=== PATIENT | male | born 1940 | race Caucasian/White ===

== ENCOUNTER 2022-02-06 07:00 | Inpatient (IN) ==
[2022-02-06] MEDS ORDERED: DEXTROSE 10% 250 ML BAG IV PRN (11:52)
[2022-02-06] MEDS ORDERED: GLUCAGON 1 MG VIAL IM PRN (11:52)
[2022-02-06] MEDS ORDERED: SODIUM CHLORIDE 0.9% 1,000 ML IV SCH (12:00)
[2022-02-06] MEDS ORDERED: MORPHINE 2 MG/1 ML SYRINGE IV PRN (12:07)
[2022-02-06] MEDS ORDERED: NITROGLYCERIN SL 0.4 MG TABLET SL PRN (12:07)
[2022-02-06] MEDS ORDERED: CLORAZEPATE 3.75 MG TABLET PO PRN (12:07)
[2022-02-06 12:43] LABS: Basophils % 0.6 % (0.0-0.8); Eosinophils # 0.6 10*3/uL (0.0-0.87); Eosinophils % 8.9 % (0.00-10.9); Hematocrit 44.4 VOL% (42.0-52.0); Hemoglobin 13.9 GM/DL (14.0-18.0); Immature Granulocytes % 0.3 %; Immature Granulocytes Absolute 0.02 #; Lymphocytes # 1.5 10*3/uL (1.4-4.0); Lymphocytes % 22.9 % (21.2-54.2); Mean Corpuscular HGB Conc 31.3 GM/DL (32-36); Mean Corpuscular Volume 92.9 FL (87-102); Mean Platelet Volume 9.8 FL (9.6-12.0); Monocytes # 0.8 10*3/uL (0.11-0.8); Monocytes % 12.1 % (1.7-12.7); Neutrophils % 55.2 % (38.7-73.9); Platelet Count 256 T/CUMM (130-400); Red Blood Count 4.78 MC/CUMM (3.8-5.5); Red Cell Distribution Width 13.5 % (9.3-17.3); White Blood Count 6.6 T/CUMM (4-12)
[2022-02-06 13:04] LABS: Albumin 3.2 G/DL (3.4-5.0); Bilirubin,Total 0.4 MG/DL (0.20-1.00); Calcium 8.9 MG/DL (8.5-10.1); Osmolality,Calculated 278.4 MOS/KG (273-304); Potassium 4.2 MMOL/L (3.5-5.1); Total Protein 6.7 G/DL (6.4-8.2)
[2022-02-06 14:48] LABS: Arterial Base Excess iSTAT 3 MMOL/L (-2.5-2.5); Arterial Bicarbonate iSTAT 28.7 MMOL/L (20-26); Arterial O2 Saturation iSTAT 95 % (95-100); Arterial PCO2 iSTAT 47 MM HG (35-48); Arterial PO2 iSTAT 75 MM HG (80-95); Arterial Total CO2 iSTAT 30 MMO/L (23-27); Arterial pH iSTAT 7.392 (7.35-7.45)
[2022-02-06] MEDS ORDERED: DIAZEPAM 5 MG TABLET PO ONE (16:28)
[2022-02-06] MEDS ORDERED: PANTOPRAZOLE 40 MG TABLET PO ONE (16:28)
[2022-02-06] MEDS: CHLORHEXIDINE 4% SOLN 118 ML BOTTLE TOP SCH ×2 (16:50→21:28)
[2022-02-06] MEDS ORDERED: amLODIPine 5 MG TABLET PO SCH (21:00)
[2022-02-06] MEDS: CHLORHEXIDINE 0.12% ORAL RINSE 60 ML BOTTLE SWISH/SPIT SCH (21:30)
[2022-02-07] MEDS: CHLORHEXIDINE 4% SOLN 118 ML BOTTLE TOP SCH (04:06)
[2022-02-07] MEDS ORDERED: PAPAVERINE 60 MG/2 ML VIAL ONE (04:17)
[2022-02-07] MEDS ORDERED: VANCOMYCIN 1,000 MG VIAL ONE (04:17)
[2022-02-07] MEDS ORDERED: VANCOMYCIN 500 MG VIAL ONE (04:17)
[2022-02-07] MEDS ORDERED: CEFUROXIME INJ 1,500 MG in SODIUM CHLORIDE 0.9% 100 ML IV ONE (05:00)
[2022-02-07] MEDS ORDERED: ePHEDrine 50 MG/ML VIAL ONE (05:34)
[2022-02-07] MEDS ORDERED: VECURONIUM 10 MG VIAL IV ONE (05:34)
[2022-02-07] MEDS ORDERED: PHENYLEPHRINE DRIP 20 MG/250 ML PREMIX IV ONE (05:34)
[2022-02-07] MEDS ORDERED: SODIUM CHLORIDE 0.9% 1,000 ML IV ONE (05:34)
[2022-02-07] MEDS ORDERED: LIDOCAINE 2% 5 ML VIAL ONE ×2 (05:34→11:24)
[2022-02-07] MEDS ORDERED: NITROGLYCERIN DRIP 50 MG/250 ML BOTTLE IV ONE (05:34)
[2022-02-07] MEDS ORDERED: LACTATED RINGERS 1,000 ML IV ONE (05:34)
[2022-02-07] MEDS ORDERED: AMINOCAPROIC ACID 5,000 MG/20 ML VIAL ONE (05:34)
[2022-02-07] MEDS ORDERED: MINERAL OIL/PETROLATUM OPH OINT 3.5 GM TUBE ONE (05:34)
[2022-02-07] MEDS ORDERED: SODIUM CHLORIDE 0.9% 250 ML IV ONE (05:34)
[2022-02-07] MEDS ORDERED: SEVOFLURANE 1 UNIT/15 MINUTE INH ONE ×2 (05:34→11:48)
[2022-02-07] MEDS ORDERED: ETOMIDATE 40 MG/20 ML VIAL IV ONE (05:34)
[2022-02-07] MEDS ORDERED: MIDAZOLAM 10 MG/2 ML VIAL ONE ×3 (05:34→05:35)
[2022-02-07] MEDS ORDERED: CALCIUM CHLORIDE 1,000 MG/10 ML VIAL IV ONE ×2 (05:34→11:48)
[2022-02-07] MEDS ORDERED: SUFentanil 250 MCG/5 ML AMP ONE (05:35)
[2022-02-07] MEDS ORDERED: HEPARIN/NACL 0.9% 2 UNITS/ML 1,000 UNIT/500 ML BAG IV ONE (05:45)
[2022-02-07] MEDS ORDERED: PANTOPRAZOLE 40 MG TABLET PO ONE (05:50)
[2022-02-07] MEDS ORDERED: DIAZEPAM 5 MG TABLET PO ONE (05:50)
[2022-02-07 07:38] LABS: ABG Base Excess 1.7 MMOL/L (-2.5-2.5); ABG HCO3 25.9 MMOL/L (20-26); ABG PCO2 45.4 MM HG (35-48); ABG PH 7.386 (7.35-7.45); ABG TCO2 23.8 MMOL/L (23-27); Glucose Heart Surgery 113 MG/DL (74-106); Hematocrit Heart Surgery 39.8 PERCENT (42-52); Ionized Calcium Arterial 1.26 MMOL/L (1.21-1.46); PCO2 Patient Temp Arterial 45.4 MMHG; PH Patient Temp Arterial 7.386; Patient Temperature 37 CELCIUS; Sodium Heart/CVR 141 MMOL/L (135-145)
[2022-02-07] MEDS ORDERED: AMIODARONE 150 MG/3 ML VIAL ONE ×2 (08:41→17:24)
[2022-02-07 08:43] LABS: RBC,Urine 1 /HPF (0-4)
[2022-02-07 08:44] LABS: Bilirubin,Urine Negative (Negative); Blood, Urine Trace mg/dL (Negative); Glucose,Urine (UA) Negative (Negative); Ketones,Urine Negative (Negative); Nitrite,Urine Negative (Negative); Protein,Urine Negative (Negative); Urine Appearance Clear (Clear); Urine Color Yellow (Yellow); Urine Specific Gravity 1.015 (1.001-1.035); Urine Urobilinogen 0.2 eU/dL (<2.0)
[2022-02-07] MEDS ORDERED: POTASSIUM CHLORIDE RIDER 20 MEQ/100 ML PREMIX IV ONE (09:06)
[2022-02-07] MEDS ORDERED: NITROPRUSSIDE 50 MG/2 ML VIAL ONE (09:06)
[2022-02-07] MEDS ORDERED: SODIUM BICARBONATE 50 MEQ/50 ML VIAL IV ONE ×2 (09:06→11:27)
[2022-02-07 09:07] LABS: Hematocrit Heart Surgery 27.6 PERCENT (42-52); Hemoglobin Heart Surgery 8.9 G/DL (14.0-18.0); PCO2 Patient Temp Venous 34.5 MM HG; PH Patient Temp Venous 7.409; PO2 Patient Temp Venous 39.3 MM HG; Potassium Heart/CVR 5.1 MMOL/L (3.5-5.1); VBG Base Excess -2.3 MEQ/L (0-4); VBG HCO3 22.3 MEQ/L (24-28); VBG Oxygen Saturation 83.7 %; VBG PCO2 39.8 MMHG (41-51); VBG PH 7.366; VBG PO2 48.3 MMHG (17-40); VBG Total CO2 21.2 MMOL/L
[2022-02-07] MEDS ORDERED: ALBUMIN 5% 12.5 GM/250 ML VIAL IV ONE ×2 (09:07→11:23)
[2022-02-07] MEDS ORDERED: PHENYLEPHRINE DRIP 40 MG/250 ML PREMIX IV ONE (09:07)
[2022-02-07] MEDS ORDERED: CALCIUM CHLORIDE 1,000 MG/10 ML SYRINGE IV ONE (09:07)
[2022-02-07] MEDS ORDERED: FAMOTIDINE 20 MG/2 ML VIAL IV ONE (09:21)
[2022-02-07] MEDS ORDERED: diphenhydrAMINE 50 MG/1 ML VIAL ONE (09:21)
[2022-02-07 09:39] LABS: Hematocrit Heart Surgery 29.1 PERCENT (42-52); Hemoglobin Heart Surgery 9.4 G/DL (14.0-18.0); PCO2 Patient Temp Venous 32.8 MM HG; PH Patient Temp Venous 7.482; PO2 Patient Temp Venous 37.8 MM HG; Potassium Heart/CVR 4.4 MMOL/L (3.5-5.1); VBG Base Excess 1.5 MEQ/L (0-4); VBG HCO3 25.5 MEQ/L (24-28); VBG Oxygen Saturation 81.8 %; VBG PCO2 37.9 MMHG (41-51); VBG PH 7.438; VBG PO2 46.5 MMHG (17-40); VBG Total CO2 23.5 MMOL/L
[2022-02-07] MEDS ORDERED: ESMOLOL 100 MG/10 ML VIAL IV ONE (09:57)
[2022-02-07 10:05] LABS: Hematocrit Heart Surgery 27.9 PERCENT (42-52); PCO2 Patient Temp Venous 31.2 MM HG; PH Patient Temp Venous 7.478; PO2 Patient Temp Venous 32.2 MM HG; Potassium Heart/CVR 4.4 MMOL/L (3.5-5.1); VBG Base Excess 0.1 MEQ/L (0-4); VBG HCO3 24.2 MEQ/L (24-28); VBG Oxygen Saturation 75.7 %; VBG PH 7.433; VBG PO2 39.7 MMHG (17-40); VBG Total CO2 22.3 MMOL/L
[2022-02-07] MEDS: CHLORHEXIDINE 0.12% ORAL RINSE 60 ML BOTTLE SWISH/SPIT SCH ×2 (10:26→20:52)
[2022-02-07] MEDS ORDERED: THROMBIN TOPICAL (RECOMBINANT) 5,000 UNIT VIAL TOP ONE (10:36)
[2022-02-07 11:17] LABS: ABG Base Excess -0.1 MMOL/L (-2.5-2.5); ABG HCO3 24.4 MMOL/L (20-26); ABG Oxygen Saturation 99.6 % (95-100); ABG PCO2 38.2 MM HG (35-48); ABG PH 7.413 (7.35-7.45); ABG TCO2 22.4 MMOL/L (23-27); Glucose Heart Surgery 221 MG/DL (74-106); Hematocrit Heart Surgery 27.8 PERCENT (42-52); Ionized Calcium Arterial 1.26 MMOL/L (1.21-1.46); PCO2 Patient Temp Arterial 38.2 MMHG; PH Patient Temp Arterial 7.413; Patient Temperature 37 CELCIUS; Potassium Heart/CVR 3.7 MMOL/L (3.5-5.1); Sodium Heart/CVR 137 MMOL/L (135-145)
[2022-02-07] MEDS ORDERED: ALBUMIN 25% 25 GM/100 ML VIAL IV ONE (11:24)
[2022-02-07] MEDS ORDERED: MAGNESIUM SULFATE 5 GM/10 ML VIAL IV ONE (11:25)
[2022-02-07] MEDS ORDERED: PROTAMINE SULFATE 250 MG/25 ML VIAL IV ONE (11:25)
[2022-02-07] MEDS ORDERED: DEXTROSE 5% KCL 20 MEQ 20 MEQ/1,000 ML BAG IV ONE (11:25)
[2022-02-07] MEDS ORDERED: methylPREDNISolone SOD SUC 1,000 MG/8 ML VIAL ONE (11:25)
[2022-02-07] MEDS ORDERED: HEPARIN 10,000 UNIT/10 ML VIAL ONE (11:26)
[2022-02-07] MEDS ORDERED: MANNITOL 12.5 GM/50 ML VIAL IV ONE (11:26)
[2022-02-07] MEDS ORDERED: FUROSEMIDE 20 MG/2 ML VIAL ONE (11:26)
[2022-02-07] MEDS ORDERED: PROTAMINE SULFATE 50 MG/5 ML VIAL IV ONE (11:27)
[2022-02-07] MEDS ORDERED: MAGNESIUM SULF RIDER 2 GM/50 ML PREMIX IV PRN (11:39)
[2022-02-07] MEDS ORDERED: ACETAMINOPHEN 650 MG SUPP RECTAL PRN (11:39)
[2022-02-07] MEDS ORDERED: MAGNESIUM SULF RIDER 4 GM/100 ML PREMIX IV PRN (11:39)
[2022-02-07] MEDS ORDERED: INSULIN REGULAR 100 UNIT/ML IV ONE (11:39)
[2022-02-07] MEDS ORDERED: PHENYLEPHRINE DRIP 40 MG/250 ML PREMIX IV PRN (11:39)
[2022-02-07] MEDS ORDERED: NITROPRUSSIDE 100 MG in DEXTROSE 5% 250 ML IV PRN (11:39)
[2022-02-07] MEDS ORDERED: DEXTROSE 10% 250 ML BAG IV PRN ×2 (11:39)
[2022-02-07] MEDS ORDERED: CHLORHEXIDINE 4% SOLN 118 ML BOTTLE TOP PRN (11:39)
[2022-02-07] MEDS ORDERED: MORPHINE 2 MG/1 ML SYRINGE IV PRN (11:39)
[2022-02-07] MEDS ORDERED: VECURONIUM 10 MG VIAL IV PRN ×2 (11:39)
[2022-02-07] MEDS ORDERED: LACTATED RINGERS 250 ML IV PRN (11:39)
[2022-02-07] MEDS ORDERED: ONDANSETRON 4 MG/2 ML VIAL IV PRN (11:39)
[2022-02-07] MEDS ORDERED: INSULIN REGULAR 100 UNIT/ML IV PRN (11:39)
[2022-02-07] MEDS ORDERED: INSULIN REGULAR DRIP 100 ML IV SCH (11:39)
[2022-02-07] MEDS ORDERED: MORPHINE 10 MG/1 ML VIAL IV PRN (11:39)
[2022-02-07] MEDS ORDERED: MIDAZOLAM 10 MG/2 ML VIAL IV PRN (11:39)
[2022-02-07] MEDS ORDERED: MIDAZOLAM 2 MG/2 ML VIAL IV PRN (11:39)
[2022-02-07] MEDS ORDERED: SODIUM CHLORIDE 0.45% 1,000 ML IV SCH ×2 (11:39)
[2022-02-07] MEDS ORDERED: CALCIUM CHLORIDE 1,000 MG/10 ML SYRINGE IV PRN (11:39)
[2022-02-07 12:11] LABS: ABG Base Excess 0.3 MMOL/L (-2.5-2.5); ABG HCO3 24.7 MMOL/L (20-26); ABG Oxygen Saturation 99.8 % (95-100); ABG PCO2 42.1 MM HG (35-48); ABG PH 7.387 (7.35-7.45); ABG TCO2 23.3 MMOL/L (23-27); Glucose Heart Surgery 197 MG/DL (74-106); Hematocrit Heart Surgery 28.6 PERCENT (42-52); Hemoglobin Heart Surgery 9.2 G/DL (14.0-18.0); Potassium Heart/CVR 4.3 MMOL/L (3.5-5.1)
[2022-02-07 12:58] LABS: ABG Base Excess -0.2 MMOL/L (-2.5-2.5); ABG HCO3 24.3 MMOL/L (20-26); ABG Oxygen Saturation 99.8 % (95-100); ABG PCO2 43.3 MM HG (35-48); ABG PH 7.371 (7.35-7.45); ABG TCO2 23.1 MMOL/L (23-27); Glucose Heart Surgery 191 MG/DL (74-106); Hematocrit Heart Surgery 29.1 PERCENT (42-52); Hemoglobin Heart Surgery 9.4 G/DL (14.0-18.0); Ionized Calcium Arterial 1.43 MMOL/L (1.21-1.46); PCO2 Patient Temp Arterial 43.3 MMHG; PH Patient Temp Arterial 7.371; Patient Temperature 37 CELCIUS; Potassium Heart/CVR 3.8 MMOL/L (3.5-5.1); Sodium Heart/CVR 139 MMOL/L (135-145)
[2022-02-07 13:00] LABS: Basophils % 0.3 % (0.0-0.8); Eosinophils # 0.1 10*3/uL (0.0-0.87); Eosinophils % 1.4 % (0.00-10.9); Hematocrit 28.5 VOL% (42.0-52.0); Hemoglobin 9.4 GM/DL (14.0-18.0); Immature Granulocytes % 0.8 %; Immature Granulocytes Absolute 0.08 #; Lymphocytes % 10.1 % (21.2-54.2); Mean Corpuscular Volume 90.2 FL (87-102); Mean Platelet Volume 9.6 FL (9.6-12.0); Monocytes # 1.1 10*3/uL (0.11-0.8); Monocytes % 10.7 % (1.7-12.7); Neutrophils % 76.7 % (38.7-73.9); Platelet Count 209 T/CUMM (130-400); Red Blood Count 3.16 MC/CUMM (3.8-5.5); Red Cell Distribution Width 13.4 % (9.3-17.3); White Blood Count 9.9 T/CUMM (4-12)
[2022-02-07 13:12] LABS: INR 1.2; PT Patient Result 13.4 SECS (10.5-12.0); Partial Thromboplastin Time 28.4 SECS (23.8-32.1)
[2022-02-07 13:18] LABS: CKMB % 7.21 %
[2022-02-07 13:21] LABS: Bilirubin,Total 1.1 MG/DL (0.20-1.00); Calcium 10.3 MG/DL (8.5-10.1); High Sensitive Troponin I* 14818.7 ng/L (0-78); Osmolality,Calculated 285.3 MOS/KG (273-304); Potassium 3.9 MMOL/L (3.5-5.1); Total Protein 5.6 G/DL (6.4-8.2)
[2022-02-07] MEDS: POTASSIUM CHLORIDE RIDER 20 MEQ/100 ML PREMIX IV PRN ×2 (14:28→19:35)
[2022-02-07 14:43] LABS: ABG Base Excess -2.1 MMOL/L (-2.5-2.5); ABG HCO3 22.7 MMOL/L (20-26); ABG Oxygen Saturation 99.4 % (95-100); ABG PCO2 42.2 MM HG (35-48); ABG PH 7.352 (7.35-7.45); ABG TCO2 21.4 MMOL/L (23-27); Glucose Heart Surgery 219 MG/DL (74-106); Hematocrit Heart Surgery 31.1 PERCENT (42-52); Potassium Heart/CVR 3.8 MMOL/L (3.5-5.1)
[2022-02-07] MEDS ORDERED: LACTATED RINGERS 1,000 ML IV PRN (15:05)
[2022-02-07] MEDS: POTASSIUM CHLORIDE RIDER 10 MEQ/100 ML PREMIX IV PRN ×2 (15:30→22:35)
[2022-02-07] MEDS: ALBUMIN 5% 12.5 GM/250 ML VIAL IV PRN ×3 (16:14→22:40)
[2022-02-07 16:21] LABS: ABG Base Excess -1.6 MMOL/L (-2.5-2.5); ABG HCO3 23.1 MMOL/L (20-26); ABG PCO2 38.9 MM HG (35-48); ABG PH 7.384 (7.35-7.45); ABG TCO2 21.3 MMOL/L (23-27); Glucose Heart Surgery 240 MG/DL (74-106); Hematocrit Heart Surgery 29.7 PERCENT (42-52); Hemoglobin Heart Surgery 9.6 G/DL (14.0-18.0); Potassium Heart/CVR 4.5 MMOL/L (3.5-5.1)
[2022-02-07] MEDS: DEXMEDETOMIDINE 200 MCG in SODIUM CHLORIDE 0.9% 48 ML IV PRN ×2 (17:58→23:49)
[2022-02-07] MEDS ORDERED: AMIODARONE INJ 150 MG in DEXTROSE 5% 100 ML IV ONE (18:00)
[2022-02-07] MEDS ORDERED: AMIODARONE INJ 100 MG in DEXTROSE 5% 100 ML IV ONE (18:00)
[2022-02-07] MEDS ORDERED: AMIODARONE INJ 450 MG in DEXTROSE 5% 241 ML IV SCH (18:10)
[2022-02-07 18:29] LABS: ABG Base Excess -4.5 MMOL/L (-2.5-2.5); ABG HCO3 20.7 MMOL/L (20-26); ABG Oxygen Saturation 98.3 % (95-100); ABG PCO2 42.6 MM HG (35-48); ABG PH 7.312 (7.35-7.45); ABG TCO2 19.7 MMOL/L (23-27); Glucose Heart Surgery 254 MG/DL (74-106); Hematocrit Heart Surgery 32.3 PERCENT (42-52); Hemoglobin Heart Surgery 10.5 G/DL (14.0-18.0)
[2022-02-07] MEDS ORDERED: FUROSEMIDE 40 MG/4 ML VIAL IV ONE (18:30)
[2022-02-07 19:20] LABS: CKMB % 8.12 %; High Sensitive Troponin I* 11550.2 ng/L (0-78)
[2022-02-07] MEDS: CEFUROXIME INJ 1,500 MG in SODIUM CHLORIDE 0.9% 100 ML IV SCH (20:11)
[2022-02-07 20:22] LABS: ABG Base Excess -4.2 MMOL/L (-2.5-2.5); ABG HCO3 20.9 MMOL/L (20-26); ABG Oxygen Saturation 97.6 % (95-100); ABG PCO2 41.4 MM HG (35-48); ABG PH 7.324 (7.35-7.45); ABG TCO2 19.8 MMOL/L (23-27); Glucose Heart Surgery 207 MG/DL (74-106)
[2022-02-07 21:57] LABS: ABG Base Excess -3.5 MMOL/L (-2.5-2.5); ABG HCO3 21.5 MMOL/L (20-26); ABG Oxygen Saturation 99.5 % (95-100); ABG PCO2 41.6 MM HG (35-48); ABG PH 7.334 (7.35-7.45); ABG PO2 93.7 MM HG (80-95); ABG TCO2 20.3 MMOL/L (23-27); Glucose Heart Surgery 189 MG/DL (74-106); Hematocrit Heart Surgery 30.4 PERCENT (42-52); Hemoglobin Heart Surgery 9.8 G/DL (14.0-18.0); Potassium Heart/CVR 4.2 MMOL/L (3.5-5.1)
[2022-02-07 23:45] LABS: ABG Base Excess -4.3 MMOL/L (-2.5-2.5); ABG HCO3 20.9 MMOL/L (20-26); ABG Oxygen Saturation 97.2 % (95-100); ABG PCO2 42.4 MM HG (35-48); ABG PH 7.317 (7.35-7.45); ABG PO2 96.6 MM HG (80-95); Glucose Heart Surgery 169 MG/DL (74-106); Hematocrit Heart Surgery 29.5 PERCENT (42-52); Hemoglobin Heart Surgery 9.5 G/DL (14.0-18.0); Potassium Heart/CVR 4.6 MMOL/L (3.5-5.1)
[2022-02-08] MEDS ORDERED: AMIODARONE INJ 450 MG in DEXTROSE 5% 241 ML IV SCH
[2022-02-08] MEDS ORDERED: FUROSEMIDE 40 MG/4 ML VIAL IV ONE (00:33)
[2022-02-08 02:46] LABS: ABG Base Excess -2.6 MMOL/L (-2.5-2.5); ABG HCO3 22.2 MMOL/L (20-26); ABG Oxygen Saturation 96.2 % (95-100); ABG PCO2 41.1 MM HG (35-48); ABG PH 7.352 (7.35-7.45); ABG PO2 84.4 MM HG (80-95); ABG TCO2 20.7 MMOL/L (23-27); Glucose Heart Surgery 143 MG/DL (74-106); Hematocrit Heart Surgery 32.1 PERCENT (42-52); Hemoglobin Heart Surgery 10.4 G/DL (14.0-18.0)
[2022-02-08] MEDS: POTASSIUM CHLORIDE RIDER 20 MEQ/100 ML PREMIX IV PRN (03:00)
[2022-02-08 03:46] LABS: Basophils % 0.1 % (0.0-0.8); Eosinophils % 0.1 % (0.00-10.9); Hematocrit 30.1 VOL% (42.0-52.0); Hemoglobin 9.9 GM/DL (14.0-18.0); Immature Granulocytes % 0.3 %; Immature Granulocytes Absolute 0.04 #; Lymphocytes # 0.5 10*3/uL (1.4-4.0); Mean Corpuscular HGB Conc 32.9 GM/DL (32-36); Monocytes % 7.9 % (1.7-12.7); Neutrophils % 87.6 % (38.7-73.9); Platelet Count 180 T/CUMM (130-400); Red Cell Distribution Width 16.2 % (9.3-17.3); White Blood Count 12.6 T/CUMM (4-12)
[2022-02-08 03:48] LABS: ABG Base Excess -3.3 MMOL/L (-2.5-2.5); ABG HCO3 21.6 MMOL/L (20-26); ABG Oxygen Saturation 97.1 % (95-100); ABG PCO2 43.1 MM HG (35-48); ABG PH 7.327 (7.35-7.45); ABG PO2 96.9 MM HG (80-95); ABG TCO2 20.8 MMOL/L (23-27); Glucose Heart Surgery 143 MG/DL (74-106); Hematocrit Heart Surgery 30.1 PERCENT (42-52); Hemoglobin Heart Surgery 9.7 G/DL (14.0-18.0); Potassium Heart/CVR 4.8 MMOL/L (3.5-5.1)
[2022-02-08 04:05] LABS: Band Neutrophils 1 % (0-10); Hypochromia Slight; Lymphocytes 4 % (20-55); Platelet Estimate Normal; Total Cells Counted 100
[2022-02-08 04:22] LABS: Albumin 3.8 G/DL (3.4-5.0); Bilirubin,Direct 0.18 MG/DL (0.0-0.20); Bilirubin,Total 0.6 MG/DL (0.20-1.00); Calcium 8.8 MG/DL (8.5-10.1); Osmolality,Calculated 284.3 MOS/KG (273-304); Potassium 4.8 MMOL/L (3.5-5.1); Total Protein 6.1 G/DL (6.4-8.2)
[2022-02-08] MEDS: CEFUROXIME INJ 1,500 MG in SODIUM CHLORIDE 0.9% 100 ML IV SCH (07:50)
[2022-02-08] MEDS: CHLORHEXIDINE 0.12% ORAL RINSE 60 ML BOTTLE SWISH/SPIT SCH ×2 (09:00→21:23)
[2022-02-08] MEDS ORDERED: POTASSIUM CHLORIDE 20 MEQ TABLET PO PRN (10:16)
[2022-02-08] MEDS ORDERED: MAGNESIUM SULF RIDER 2 GM/50 ML PREMIX IV PRN (10:16)
[2022-02-08] MEDS ORDERED: SODIUM CHLOR 0.45% KCL 20 MEQ 20 MEQ/1,000 ML BAG IV SCH (10:16)
[2022-02-08] MEDS ORDERED: DOXYLAMINE SUCCINATE 25 MG PO PRN (10:16)
[2022-02-08] MEDS ORDERED: MAGNESIUM SULF RIDER 4 GM/100 ML PREMIX IV PRN (10:16)
[2022-02-08] MEDS ORDERED: GLUCAGON 1 MG VIAL IM PRN ×2 (10:16)
[2022-02-08] MEDS ORDERED: ALUMINUM/MAGNES/SIMETH MAX STR 30 ML UDCUP PO PRN (10:16)
[2022-02-08] MEDS ORDERED: DEXTROSE 50% 25 GM/50 ML VIAL IV PRN (10:16)
[2022-02-08] MEDS ORDERED: ONDANSETRON 4 MG/2 ML VIAL IV PRN (10:16)
[2022-02-08] MEDS ORDERED: DEXTROSE 10% 250 ML BAG IV PRN (10:25)
[2022-02-08] MEDS: AMIODARONE 200 MG TABLET PO SCH ×2 (10:30→21:23)
[2022-02-08] MEDS ORDERED: INSULIN REGULAR 100 UNIT/ML ONE (12:40)
[2022-02-08] MEDS: INSULIN REGULAR 100 UNIT/ML SUBCUT SCH ×4 (12:40→23:39)
[2022-02-08] MEDS: oxyCODONE/ACETAMINOPHEN 5-325 MG TABLET PO PRN ×2 (14:35→21:23)
[2022-02-08] MEDS: ACETAMINOPHEN 325 MG TABLET PO PRN (16:40)
[2022-02-08] MEDS: LOSARTAN 25 MG TABLET PO SCH (21:23)
[2022-02-08] MEDS: PSYLLIUM POWDER 3.7 GM/PACK PO SCH (21:23)
[2022-02-08] MEDS: TRAVOPROST 0.004% OPH SOLN 2.5 ML BOTTLE BOTH EYES SCH (21:23)
[2022-02-09] MEDS: INSULIN REGULAR 100 UNIT/ML SUBCUT SCH ×5 (03:23→20:25)
[2022-02-09 04:03] LABS: Basophils % 0.1 % (0.0-0.8); Hematocrit 27.5 VOL% (42.0-52.0); Hemoglobin 8.8 GM/DL (14.0-18.0); Immature Granulocytes % 0.6 %; Lymphocytes # 0.4 10*3/uL (1.4-4.0); Lymphocytes % 2.2 % (21.2-54.2); Mean Corpuscular Volume 87.6 FL (87-102); Mean Platelet Volume 10.8 FL (9.6-12.0); Monocytes # 1.7 10*3/uL (0.11-0.8); Monocytes % 9.9 % (1.7-12.7); Neutrophils % 87.2 % (38.7-73.9); Platelet Count 157 T/CUMM (130-400); Red Blood Count 3.14 MC/CUMM (3.8-5.5); Red Cell Distribution Width 16.6 % (9.3-17.3); White Blood Count 17.1 T/CUMM (4-12)
[2022-02-09 04:24] LABS: Hypochromia Slight; Lymphocytes 1 % (20-55); Microcytosis Slight; Platelet Estimate Adequate; Total Cells Counted 100
[2022-02-09 04:28] LABS: Bilirubin,Direct 0.16 MG/DL (0.0-0.20); Bilirubin,Indirect 0.3 MG/DL (0.0-1.0); Bilirubin,Total 0.5 MG/DL (0.20-1.00); CKMB % 8.83 %; Calcium 8.6 MG/DL (8.5-10.1); Osmolality,Calculated 286.4 MOS/KG (273-304); Potassium 4.8 MMOL/L (3.5-5.1); Total Protein 5.7 G/DL (6.4-8.2)
[2022-02-09 04:31] LABS: High Sensitive Troponin I* 13145.5 ng/L (0-78)
[2022-02-09] MEDS ORDERED: FUROSEMIDE 40 MG/4 ML VIAL IV ONE (06:00)
[2022-02-09 07:28] LABS: Arterial Base Excess iSTAT 2 MMOL/L (-2.5-2.5); Arterial Bicarbonate iSTAT 26.5 MMOL/L (20-26); Arterial O2 Saturation iSTAT 95 % (95-100); Arterial PCO2 iSTAT 39 MM HG (35-48); Arterial PO2 iSTAT 73 MM HG (80-95); Arterial Total CO2 iSTAT 28 MMO/L (23-27); Arterial pH iSTAT 7.441 (7.35-7.45)
[2022-02-09] MEDS: ATORVASTATIN 20 MG TABLET PO SCH (07:50)
[2022-02-09] MEDS: DOCUSATE SODIUM 100 MG CAPSULE PO SCH (07:50)
[2022-02-09] MEDS: FERROUS SULFATE 325 MG TABLET PO SCH (07:50)
[2022-02-09] MEDS: PANTOPRAZOLE 40 MG TABLET PO SCH (07:50)
[2022-02-09] MEDS: AMIODARONE 200 MG TABLET PO SCH ×2 (07:50→21:30)
[2022-02-09] MEDS: CHLORHEXIDINE 0.12% ORAL RINSE 60 ML BOTTLE SWISH/SPIT SCH ×2 (08:00→21:30)
[2022-02-09] MEDS ORDERED: ASPIRIN EC 325 MG TABLET PO SCH (09:00)
[2022-02-09] MEDS: LOSARTAN 25 MG TABLET PO SCH (21:30)
[2022-02-09] MEDS: TRAVOPROST 0.004% OPH SOLN 2.5 ML BOTTLE BOTH EYES SCH (21:30)
[2022-02-09] MEDS: PSYLLIUM POWDER 3.7 GM/PACK PO SCH (21:30)
[2022-02-10] MEDS: INSULIN REGULAR 100 UNIT/ML SUBCUT SCH ×6 (00:08→20:54)
[2022-02-10 04:46] LABS: Basophils % 0.1 % (0.0-0.8); Hematocrit 29.3 VOL% (42.0-52.0); Hemoglobin 9.3 GM/DL (14.0-18.0); Immature Granulocytes % 0.6 %; Immature Granulocytes Absolute 0.09 #; Lymphocytes # 0.4 10*3/uL (1.4-4.0); Lymphocytes % 2.5 % (21.2-54.2); Mean Corpuscular HGB Conc 31.7 GM/DL (32-36); Mean Platelet Volume 10.4 FL (9.6-12.0); Monocytes # 1.5 10*3/uL (0.11-0.8); Monocytes % 10.4 % (1.7-12.7); Neutrophils % 86.4 % (38.7-73.9); Platelet Count 168 T/CUMM (130-400); Red Blood Count 3.33 MC/CUMM (3.8-5.5); Red Cell Distribution Width 15.9 % (9.3-17.3); White Blood Count 14.6 T/CUMM (4-12)
[2022-02-10 05:05] LABS: Hypochromia Slight; Lymphocytes 3 % (20-55); Microcytosis Slight; Platelet Estimate Adequate; Total Cells Counted 100
[2022-02-10 05:09] LABS: Albumin 2.8 G/DL (3.4-5.0); Bilirubin,Direct 0.22 MG/DL (0.0-0.20); Bilirubin,Indirect 0.4 MG/DL (0.0-1.0); Bilirubin,Total 0.6 MG/DL (0.20-1.00); CKMB % 3.83 %; Calcium 8.9 MG/DL (8.5-10.1); Osmolality,Calculated 277.7 MOS/KG (273-304); Potassium 4.4 MMOL/L (3.5-5.1)
[2022-02-10 05:10] LABS: High Sensitive Troponin I* 8649.8 ng/L (0-78)
[2022-02-10] MEDS: MAGNESIUM HYDROXIDE SUSP 30 ML UDCUP PO PRN (07:44)
[2022-02-10] MEDS: POLYETHYLENE GLYCOL POWDER 17 GM PACK PO SCH (08:51)
[2022-02-10] MEDS: AMIODARONE 200 MG TABLET PO SCH ×2 (08:52→21:49)
[2022-02-10] MEDS: FERROUS SULFATE 325 MG TABLET PO SCH (08:52)
[2022-02-10] MEDS: DOCUSATE SODIUM 100 MG CAPSULE PO SCH (08:52)
[2022-02-10] MEDS: ATORVASTATIN 20 MG TABLET PO SCH (08:52)
[2022-02-10] MEDS: PANTOPRAZOLE 40 MG TABLET PO SCH (08:52)
[2022-02-10] MEDS: CHLORHEXIDINE 0.12% ORAL RINSE 60 ML BOTTLE SWISH/SPIT SCH ×2 (08:52→21:49)
[2022-02-10] MEDS: ACETAMINOPHEN 325 MG TABLET PO PRN (17:38)
[2022-02-10] MEDS: LOSARTAN 25 MG TABLET PO SCH (21:49)
[2022-02-10] MEDS: TRAVOPROST 0.004% OPH SOLN 2.5 ML BOTTLE BOTH EYES SCH (21:49)
[2022-02-10] MEDS: METOPROLOL TARTRATE 25 MG TABLET PO SCH (21:49)
[2022-02-10] MEDS: PSYLLIUM POWDER 3.7 GM/PACK PO SCH (21:49)
[2022-02-11] MEDS: INSULIN REGULAR 100 UNIT/ML SUBCUT SCH ×6 (00:05→19:36)
[2022-02-11 04:30] LABS: Basophils % 0.1 % (0.0-0.8); Eosinophils % 0.1 % (0.00-10.9); Hematocrit 30.5 VOL% (42.0-52.0); Hemoglobin 9.6 GM/DL (14.0-18.0); Immature Granulocytes % 0.6 %; Immature Granulocytes Absolute 0.07 #; Lymphocytes # 0.5 10*3/uL (1.4-4.0); Lymphocytes % 4.6 % (21.2-54.2); Mean Corpuscular HGB Conc 31.5 GM/DL (32-36); Mean Corpuscular Volume 87.6 FL (87-102); Mean Platelet Volume 10.3 FL (9.6-12.0); Monocytes # 1.3 10*3/uL (0.11-0.8); Monocytes % 11.4 % (1.7-12.7); Neutrophils % 83.2 % (38.7-73.9); Platelet Count 203 T/CUMM (130-400); Red Blood Count 3.48 MC/CUMM (3.8-5.5); Red Cell Distribution Width 15.4 % (9.3-17.3); White Blood Count 11.2 T/CUMM (4-12)
[2022-02-11 04:44] LABS: Calcium 9.3 MG/DL (8.5-10.1); Osmolality,Calculated 277.7 MOS/KG (273-304); Potassium 4.5 MMOL/L (3.5-5.1)
[2022-02-11 04:48] LABS: Eosinophils 1 % (0-10); Hypochromia Slight; Lymphocytes 7 % (20-55); Microcytosis Slight; Platelet Estimate Adequate; Total Cells Counted 100
[2022-02-11] MEDS: CLOPIDOGREL 75 MG TABLET PO SCH (08:48)
[2022-02-11] MEDS: AMIODARONE 200 MG TABLET PO SCH ×2 (08:48→21:14)
[2022-02-11] MEDS: DOCUSATE SODIUM 100 MG CAPSULE PO SCH ×2 (08:48→21:13)
[2022-02-11] MEDS: PANTOPRAZOLE 40 MG TABLET PO SCH (08:48)
[2022-02-11] MEDS: METOPROLOL TARTRATE 25 MG TABLET PO SCH ×2 (08:48→21:14)
[2022-02-11] MEDS: ATORVASTATIN 20 MG TABLET PO SCH (08:48)
[2022-02-11] MEDS: FERROUS SULFATE 325 MG TABLET PO SCH (08:48)
[2022-02-11] MEDS: CHLORHEXIDINE 0.12% ORAL RINSE 60 ML BOTTLE SWISH/SPIT SCH ×2 (08:49→21:14)
[2022-02-11] MEDS: POLYETHYLENE GLYCOL POWDER 17 GM PACK PO SCH (08:50)
[2022-02-11] MEDS: PSYLLIUM POWDER 3.7 GM/PACK PO SCH (21:14)
[2022-02-11] MEDS: LOSARTAN 25 MG TABLET PO SCH (21:14)
[2022-02-11] MEDS: TRAVOPROST 0.004% OPH SOLN 2.5 ML BOTTLE BOTH EYES SCH (21:14)
[2022-02-11] MEDS ORDERED: SODIUM PHOSPHATE ENEMA 133 ML BOTTLE RECTAL ONE (22:00)
[2022-02-12] MEDS: MAGNESIUM HYDROXIDE SUSP 30 ML UDCUP PO PRN (02:53)
[2022-02-12] MEDS: oxyCODONE/ACETAMINOPHEN 5-325 MG TABLET PO PRN (03:02)
[2022-02-12 04:54] LABS: Basophils % 0.1 % (0.0-0.8); Eosinophils % 0.3 % (0.00-10.9); Hematocrit 33.6 VOL% (42.0-52.0); Hemoglobin 10.5 GM/DL (14.0-18.0); Lymphocytes # 0.7 10*3/uL (1.4-4.0); Lymphocytes % 6.5 % (21.2-54.2); Mean Corpuscular HGB Conc 31.3 GM/DL (32-36); Mean Corpuscular Volume 87.7 FL (87-102); Monocytes # 1.6 10*3/uL (0.11-0.8); Monocytes % 15.6 % (1.7-12.7); NRBC # 0.02 10*3/uL; Neutrophils % 76.5 % (38.7-73.9); Platelet Count 266 T/CUMM (130-400); Red Blood Count 3.83 MC/CUMM (3.8-5.5); White Blood Count 10.1 T/CUMM (4-12)
[2022-02-12 05:12] LABS: Albumin 2.7 G/DL (3.4-5.0); Bilirubin,Direct 0.3 MG/DL (0.0-0.20); Bilirubin,Indirect 0.5 MG/DL (0.0-1.0); Bilirubin,Total 0.8 MG/DL (0.20-1.00); CKMB % 3.49 %; Calcium 8.7 MG/DL (8.5-10.1); Osmolality,Calculated 281.5 MOS/KG (273-304); Potassium 4.2 MMOL/L (3.5-5.1); Total Protein 5.9 G/DL (6.4-8.2)
[2022-02-12 05:13] LABS: Hypochromia Slight; Lymphocytes 3 % (20-55); Platelet Estimate Adequate; Total Cells Counted 100
[2022-02-12 05:15] LABS: High Sensitive Troponin I* 7209.5 ng/L (0-78)
[2022-02-12] MEDS: DOCUSATE SODIUM 100 MG CAPSULE PO SCH ×2 (09:38→21:57)
[2022-02-12] MEDS: ATORVASTATIN 20 MG TABLET PO SCH (09:39)
[2022-02-12] MEDS: METOPROLOL TARTRATE 25 MG TABLET PO SCH ×2 (09:39→21:57)
[2022-02-12] MEDS: AMIODARONE 200 MG TABLET PO SCH ×2 (09:39→21:57)
[2022-02-12] MEDS: POLYETHYLENE GLYCOL POWDER 17 GM PACK PO SCH (09:40)
[2022-02-12] MEDS: PANTOPRAZOLE 40 MG TABLET PO SCH (09:40)
[2022-02-12] MEDS: CLOPIDOGREL 75 MG TABLET PO SCH (09:40)
[2022-02-12] MEDS: INSULIN REGULAR 100 UNIT/ML SUBCUT SCH ×2 (09:50→13:24)
[2022-02-12] MEDS: CHLORHEXIDINE 0.12% ORAL RINSE 60 ML BOTTLE SWISH/SPIT SCH ×2 (09:50→21:58)
[2022-02-12] MEDS ORDERED: BISACODYL 10 MG SUPP RECTAL ONE (13:30)
[2022-02-12] MEDS: PSYLLIUM POWDER 3.7 GM/PACK PO SCH (21:56)
[2022-02-12] MEDS: LOSARTAN 25 MG TABLET PO SCH (21:57)
[2022-02-12] MEDS: TRAVOPROST 0.004% OPH SOLN 2.5 ML BOTTLE BOTH EYES SCH (21:58)
[2022-02-13 04:50] LABS: Basophils % 0.3 % (0.0-0.8); Eosinophils # 0.3 10*3/uL (0.0-0.87); Eosinophils % 2.2 % (0.00-10.9); Hematocrit 36.6 VOL% (42.0-52.0); Hemoglobin 11.4 GM/DL (14.0-18.0); Immature Granulocytes % 2.6 %; Lymphocytes # 0.8 10*3/uL (1.4-4.0); Lymphocytes % 7.2 % (21.2-54.2); Mean Corpuscular HGB Conc 31.1 GM/DL (32-36); Mean Corpuscular Volume 88.2 FL (87-102); Mean Platelet Volume 9.8 FL (9.6-12.0); Monocytes # 1.7 10*3/uL (0.11-0.8); Monocytes % 14.5 % (1.7-12.7); NRBC # 0.02 10*3/uL; Neutrophils % 73.2 % (38.7-73.9); Platelet Count 341 T/CUMM (130-400); Red Blood Count 4.15 MC/CUMM (3.8-5.5); Red Cell Distribution Width 14.9 % (9.3-17.3); White Blood Count 11.5 T/CUMM (4-12)
[2022-02-13 05:15] LABS: Alanine Aminotransferase 24 U/L (16-61); Albumin 2.2 G/DL (3.4-5.0); Alkaline Phosphatase 49 U/L (45-117); Aspartate Amino Transferase 25 U/L (0-37); Bilirubin,Indirect 0.5 MG/DL (0.0-1.0); Blood Urea Nitrogen 31 MG/DL (7-18); Calcium 8.5 MG/DL (8.5-10.1); Carbon Dioxide 30 MMOL/L (21-32); Chloride 106 MMOL/L (98-107); Glucose 116 MG/DL (74-106); Osmolality,Calculated 286.4 MOS/KG (273-304); Potassium 4.5 MMOL/L (3.5-5.1); Sodium 140 MMOL/L (136-145); Total Protein 5.5 G/DL (6.4-8.2)
[2022-02-13] MEDS ORDERED: METOCLOPRAMIDE 10 MG/2 ML VIAL IV ONE (06:06)
[2022-02-13] MEDS: DOCUSATE SODIUM 100 MG CAPSULE PO SCH ×2 (08:36→21:13)
[2022-02-13] MEDS: ATORVASTATIN 20 MG TABLET PO SCH (08:36)
[2022-02-13] MEDS: AMIODARONE 200 MG TABLET PO SCH ×2 (08:37→21:13)
[2022-02-13] MEDS: CLOPIDOGREL 75 MG TABLET PO SCH (08:37)
[2022-02-13] MEDS: METOPROLOL TARTRATE 25 MG TABLET PO SCH ×2 (08:37→21:13)
[2022-02-13] MEDS: PANTOPRAZOLE 40 MG TABLET PO SCH (08:37)
[2022-02-13] MEDS: POLYETHYLENE GLYCOL POWDER 17 GM PACK PO SCH (08:38)
[2022-02-13] MEDS: CHLORHEXIDINE 0.12% ORAL RINSE 60 ML BOTTLE SWISH/SPIT SCH ×2 (13:02→21:17)
[2022-02-13] MEDS: METOCLOPRAMIDE 10 MG/2 ML VIAL IV SCH (17:19)
[2022-02-13] MEDS: LOSARTAN 25 MG TABLET PO SCH (21:13)
[2022-02-13] MEDS: PSYLLIUM POWDER 3.7 GM/PACK PO SCH ×2 (21:17→21:27)
[2022-02-14] MEDS: METOCLOPRAMIDE 10 MG/2 ML VIAL IV SCH ×5 (00:08→23:55)
[2022-02-14] MEDS: TRAVOPROST 0.004% OPH SOLN 2.5 ML BOTTLE BOTH EYES SCH ×2 (00:32→20:41)
[2022-02-14 07:48] LABS: Basophils % 0.4 % (0.0-0.8); Eosinophils # 0.5 10*3/uL (0.0-0.87); Eosinophils % 4.1 % (0.00-10.9); Hematocrit 31.7 VOL% (42.0-52.0); Hemoglobin 10.1 GM/DL (14.0-18.0); Immature Granulocytes % 5.2 %; Immature Granulocytes Absolute 0.59 #; Lymphocytes % 8.5 % (21.2-54.2); Mean Corpuscular HGB Conc 31.9 GM/DL (32-36); Mean Corpuscular Volume 86.6 FL (87-102); Mean Platelet Volume 9.6 FL (9.6-12.0); Monocytes # 1.6 10*3/uL (0.11-0.8); Monocytes % 13.7 % (1.7-12.7); Neutrophils % 68.1 % (38.7-73.9); Platelet Count 314 T/CUMM (130-400); Red Blood Count 3.66 MC/CUMM (3.8-5.5); Red Cell Distribution Width 14.8 % (9.3-17.3); White Blood Count 11.4 T/CUMM (4-12)
[2022-02-14 08:08] LABS: Calcium 8.5 MG/DL (8.5-10.1); Osmolality,Calculated 283.5 MOS/KG (273-304); Potassium 4.2 MMOL/L (3.5-5.1)
[2022-02-14 08:13] LABS: Band Neutrophils 1 % (0-10); Eosinophils 3 % (0-10); Lymphocytes 14 % (20-55); Total Cells Counted 100
[2022-02-14 08:14] LABS: Hypochromia Slight; Microcytosis 1+; Polychromasia Slight
[2022-02-14 08:15] LABS: Platelet Estimate Normal
[2022-02-14] MEDS: AMIODARONE 200 MG TABLET PO SCH ×2 (09:24→20:39)
[2022-02-14] MEDS: POLYETHYLENE GLYCOL POWDER 17 GM PACK PO SCH (09:24)
[2022-02-14] MEDS: CLOPIDOGREL 75 MG TABLET PO SCH (09:24)
[2022-02-14] MEDS: DOCUSATE SODIUM 100 MG CAPSULE PO SCH ×2 (09:24→20:39)
[2022-02-14] MEDS: PANTOPRAZOLE 40 MG TABLET PO SCH (09:24)
[2022-02-14] MEDS: METOPROLOL TARTRATE 25 MG TABLET PO SCH ×2 (09:24→20:39)
[2022-02-14] MEDS: ATORVASTATIN 20 MG TABLET PO SCH (09:24)
[2022-02-14] MEDS: CHLORHEXIDINE 0.12% ORAL RINSE 60 ML BOTTLE SWISH/SPIT SCH ×2 (09:25→20:40)
[2022-02-14] MEDS: LOSARTAN 25 MG TABLET PO SCH (20:40)
[2022-02-14] MEDS: PSYLLIUM POWDER 3.7 GM/PACK PO SCH (20:58)
[2022-02-15] MEDS: ZALEPLON 5 MG CAPSULE PO PRN ×2 (00:17→20:37)
[2022-02-15 04:43] LABS: Basophils % 0.2 % (0.0-0.8); Eosinophils # 0.4 10*3/uL (0.0-0.87); Eosinophils % 4.4 % (0.00-10.9); Hematocrit 29.6 VOL% (42.0-52.0); Hemoglobin 9.4 GM/DL (14.0-18.0); Immature Granulocytes Absolute 0.38 #; Lymphocytes % 9.9 % (21.2-54.2); Mean Corpuscular HGB Conc 31.8 GM/DL (32-36); Mean Corpuscular Volume 88.1 FL (87-102); Mean Platelet Volume 9.6 FL (9.6-12.0); Monocytes # 1.2 10*3/uL (0.11-0.8); Monocytes % 12.2 % (1.7-12.7); Neutrophils % 69.3 % (38.7-73.9); Platelet Count 314 T/CUMM (130-400); Red Blood Count 3.36 MC/CUMM (3.8-5.5); Red Cell Distribution Width 14.8 % (9.3-17.3); White Blood Count 9.6 T/CUMM (4-12)
[2022-02-15 05:03] LABS: Albumin 2.2 G/DL (3.4-5.0); Bilirubin,Total 0.7 MG/DL (0.20-1.00); Calcium 8.4 MG/DL (8.5-10.1); Osmolality,Calculated 275.8 MOS/KG (273-304); Total Protein 5.1 G/DL (6.4-8.2)
[2022-02-15] MEDS: METOCLOPRAMIDE 10 MG/2 ML VIAL IV SCH ×3 (06:10→17:40)
[2022-02-15] MEDS: CHLORHEXIDINE 0.12% ORAL RINSE 60 ML BOTTLE SWISH/SPIT SCH ×2 (08:46→20:29)
[2022-02-15] MEDS: ATORVASTATIN 20 MG TABLET PO SCH (08:46)
[2022-02-15] MEDS: AMIODARONE 200 MG TABLET PO SCH ×2 (08:46→20:28)
[2022-02-15] MEDS: METOPROLOL TARTRATE 25 MG TABLET PO SCH ×2 (08:46→20:29)
[2022-02-15] MEDS: DOCUSATE SODIUM 100 MG CAPSULE PO SCH ×2 (08:46→20:28)
[2022-02-15] MEDS: CLOPIDOGREL 75 MG TABLET PO SCH (08:46)
[2022-02-15] MEDS: PANTOPRAZOLE 40 MG TABLET PO SCH (08:46)
[2022-02-15] MEDS: POLYETHYLENE GLYCOL POWDER 17 GM PACK PO SCH (08:46)
[2022-02-15] MEDS: LOSARTAN 25 MG TABLET PO SCH (20:28)
[2022-02-15] MEDS: PSYLLIUM POWDER 3.7 GM/PACK PO SCH (20:28)
[2022-02-15] MEDS: TRAVOPROST 0.004% OPH SOLN 2.5 ML BOTTLE BOTH EYES SCH (20:29)
[2022-02-16] MEDS: METOCLOPRAMIDE 10 MG/2 ML VIAL IV SCH ×4 (00:09→17:58)
[2022-02-16 04:53] LABS: Basophils % 0.2 % (0.0-0.8); Eosinophils # 0.3 10*3/uL (0.0-0.87); Eosinophils % 2.9 % (0.00-10.9); Hematocrit 28.6 VOL% (42.0-52.0); Hemoglobin 9.2 GM/DL (14.0-18.0); Immature Granulocytes % 4.5 %; Immature Granulocytes Absolute 0.39 #; Lymphocytes # 0.8 10*3/uL (1.4-4.0); Lymphocytes % 8.7 % (21.2-54.2); Mean Corpuscular HGB Conc 32.2 GM/DL (32-36); Mean Corpuscular Volume 87.5 FL (87-102); Mean Platelet Volume 9.5 FL (9.6-12.0); Monocytes # 1.2 10*3/uL (0.11-0.8); Monocytes % 13.6 % (1.7-12.7); Neutrophils % 70.1 % (38.7-73.9); Platelet Count 337 T/CUMM (130-400); Red Blood Count 3.27 MC/CUMM (3.8-5.5); Red Cell Distribution Width 14.9 % (9.3-17.3); White Blood Count 8.7 T/CUMM (4-12)
[2022-02-16 05:23] LABS: Potassium 4.2 MMOL/L (3.5-5.1)
[2022-02-16] MEDS: ATORVASTATIN 20 MG TABLET PO SCH (08:26)
[2022-02-16] MEDS: CHLORHEXIDINE 0.12% ORAL RINSE 60 ML BOTTLE SWISH/SPIT SCH ×2 (08:26→20:35)
[2022-02-16] MEDS: PANTOPRAZOLE 40 MG TABLET PO SCH (08:26)
[2022-02-16] MEDS: AMIODARONE 200 MG TABLET PO SCH ×2 (08:26→20:34)
[2022-02-16] MEDS: DOCUSATE SODIUM 100 MG CAPSULE PO SCH ×2 (08:26→20:34)
[2022-02-16] MEDS: CLOPIDOGREL 75 MG TABLET PO SCH (08:26)
[2022-02-16] MEDS: POLYETHYLENE GLYCOL POWDER 17 GM PACK PO SCH (08:26)
[2022-02-16] MEDS: METOPROLOL TARTRATE 25 MG TABLET PO SCH ×2 (08:26→20:34)
[2022-02-16] MEDS ORDERED: BISACODYL 10 MG SUPP RECTAL PRN (09:47)
[2022-02-16] MEDS ORDERED: LACTULOSE 20 GM/30 ML UDCUP PO PRN (09:47)
[2022-02-16] MEDS: ZALEPLON 5 MG CAPSULE PO PRN (20:34)
[2022-02-16] MEDS: PSYLLIUM POWDER 3.7 GM/PACK PO SCH (20:34)
[2022-02-16] MEDS: LOSARTAN 25 MG TABLET PO SCH (20:35)
[2022-02-16] MEDS: TRAVOPROST 0.004% OPH SOLN 2.5 ML BOTTLE BOTH EYES SCH (20:35)
[2022-02-17] MEDS: METOCLOPRAMIDE 10 MG/2 ML VIAL IV SCH ×3 (00:25→12:05)
[2022-02-17 05:27] LABS: Basophils % 0.3 % (0.0-0.8); Eosinophils # 0.2 10*3/uL (0.0-0.87); Hematocrit 29.7 VOL% (42.0-52.0); Hemoglobin 9.4 GM/DL (14.0-18.0); Immature Granulocytes % 3.1 %; Immature Granulocytes Absolute 0.28 #; Lymphocytes # 0.8 10*3/uL (1.4-4.0); Mean Corpuscular HGB Conc 31.6 GM/DL (32-36); Mean Corpuscular Volume 88.1 FL (87-102); Mean Platelet Volume 9.2 FL (9.6-12.0); Monocytes # 1.2 10*3/uL (0.11-0.8); Monocytes % 12.9 % (1.7-12.7); Neutrophils % 72.7 % (38.7-73.9); Platelet Count 314 T/CUMM (130-400); Red Blood Count 3.37 MC/CUMM (3.8-5.5); Red Cell Distribution Width 15.2 % (9.3-17.3)
[2022-02-17 05:41] LABS: Calcium 8.4 MG/DL (8.5-10.1); Osmolality,Calculated 273.8 MOS/KG (273-304); Potassium 4.2 MMOL/L (3.5-5.1)
[2022-02-17] MEDS: AMIODARONE 200 MG TABLET PO SCH (08:54)
[2022-02-17] MEDS: DOCUSATE SODIUM 100 MG CAPSULE PO SCH (08:54)
[2022-02-17] MEDS: METOPROLOL TARTRATE 25 MG TABLET PO SCH (08:54)
[2022-02-17] MEDS: PANTOPRAZOLE 40 MG TABLET PO SCH (08:54)
[2022-02-17] MEDS: ATORVASTATIN 20 MG TABLET PO SCH (08:54)
[2022-02-17] MEDS: CLOPIDOGREL 75 MG TABLET PO SCH (08:54)
[2022-02-17] MEDS: CHLORHEXIDINE 0.12% ORAL RINSE 60 ML BOTTLE SWISH/SPIT SCH (08:57)
[2022-02-17] MEDS: POLYETHYLENE GLYCOL POWDER 17 GM PACK PO SCH (08:57)
[2022-02-17 12:06] VITALS: BP 136/66
== END 2022-02-17 12:57 | disposition home health service (06) | DRG 236 ==
LOC: N.3E 12:01 → N.CVR 02-07 09:58 → N.ICU 02-08 10:14 → N.TELES 02-13 16:06